=== PATIENT | female | born 1980 | race Hispanic/Latino ===

== ENCOUNTER 2017-03-26 15:56 | Emergency (ER) | payer SELFPAY ==
[2017-03-26 16:07] VITALS: BP 148/84; PULSE 111; RESP 16; TEMP 98.2; O2SAT 100
--- NOTE | 2017-03-26 16:35 | ED PDOC ---
HPI: Abdomen Time Seen by Provider: 03/26/17 16:20 Chief Complaint (Nursing): Abdominal Pain Chief Complaint (Provider): Epigastric abdominal pain History Per: Patient History/Exam Limitations: no limitations Onset/Duration Of Symptoms: Days (x4) Current Symptoms Are (Timing): Still Present Additional Complaint(s): Sarah Pitt is a 37 year old female with a past surgical history of lumpectomy s/p Breast CA dx earlier this year presenting to the ED for an evaluation of stabbing, non-radiating epigastric pain worsening when eating occurring for a few days prior to arrival. The patient also reports associated nausea occurring for 3 days prior to arrival and vomiting (resolved upon evaluation) occurring for 3-4 days prior to arrival and diarrhea occurring this morning prior to arrival. The patient reports her nausea started after taking OTC medication for a previous cold. She also reports visiting urgent care where she was given medication for her nausea causing heart burn. The patient also reports a minor fever, measured as 37 degrees Celsius. The patient denies blood in vomit or stool or dysuria. PMD: [facility] [phone] Past Medical History Reviewed: Historical Data, Nursing Documentation, Vital Signs Vital Signs: Last Vital Signs Temp 98.2 F 03/26/17 16:02 Pulse 111 H 03/26/17 16:02 Resp 16 03/26/17 16:02 BP 148/84 03/26/17 16:02 Pulse Ox 100 03/26/17 19:14 - Medical History PMH: No Chronic Diseases - Surgical History Other surgeries: lumpectomy - Family History Family History: States: No Known Family Hx - Social History Current smoker - smoking cessation education provided: No Ex-Smoker (has not smoked in the last 12 months): Yes Alcohol: Social Drugs: Denies - Home Medications Home Medications: Ambulatory Orders Medication Instructions Recorded Metronidazole [Flagyl] 500 mg PO Q8 #30 tab 03/26/17 Ondansetron ODT [Zofran ODT] 4 mg PO Q8 #12 odt 03/26/17 levoFLOXacin [Levaquin] 1 tab PO DAILY #10 tab 03/26/17 - Allergies Allergies/Adverse Reactions: Allergies Allergy/AdvReac Type Severity Reaction Status Date / Time No Known Allergies Allergy Verified 03/26/17 16:02 Review of Systems ROS Statement: Except As Marked, All Systems Reviewed And Found Negative Constitutional: Positive for: Fever Cardiovascular: Positive for: Other (heart burn from medication) Gastrointestinal: Positive for: Nausea, Vomiting, Abdominal Pain (epigastric), Diarrhea. Negative for: Hematochezia, Hematemesis Physical Exam - Reviewed Nursing Documentation Reviewed: Yes Vital Signs Reviewed: Yes - Physical Exam Appears: Positive for: Non-toxic, No Acute Distress Head Exam: Positive for: ATRAUMATIC, NORMOCEPHALIC Skin: Positive for: Normal Color, Warm, Dry Eye Exam: Positive for: Normal appearance, EOMI ENT: Positive for: Normal ENT Inspection Neck: Positive for: Normal, Painless ROM Cardiovascular/Chest: Positive for: Regular Rate, Rhythm. Negative for: Edema, Murmur Respiratory: Positive for: Normal Breath Sounds. Negative for: Respiratory Distress Pulses-Radial (L): 2+ Pulses-Radial (R): 2+ Gastrointestinal/Abdominal: Positive for: Soft, Tenderness (to LUQ), Guarding Back: Positive for: Normal Inspection. Negative for: L CVA Tenderness, R CVA Tenderness Extremity: Positive for: Normal ROM. Negative for: Deformity Neurologic/Psych: Positive for: Alert, Oriented (x3). Negative for: Motor/ Sensory Deficits - Laboratory Results Result Diagrams: 03/26/17 16:30 03/26/17 16:30 - ECG O2 Sat by Pulse Oximetry: 100 (RA) Pulse Ox Interpretation: Normal Medical Decision Making Medical Decision Making: Time: 16:20 Impression: LUQ abdominal pain Plan: * CMP * CBC (with differential) * Lipase * HCG, Qualitative Urine * Urinalysis * NS 0.9% 1,000 ml IV 1,000 mls/hr * Zofran 8 mg IVP * CT Abd & Pelvis IV Contrast Only * Reevaluation Time: 1858 --Abd & Pelvis CT FINDINGS: Lower thorax: No acute findings. ABDOMEN: Liver: Unremarkable. No mass. Gallbladder and bile ducts: Unremarkable. No calcified stones. No ductal dilation. Pancreas: Unremarkable. No mass. No ductal dilation. Spleen: Unremarkable. No splenomegaly. Adrenals: There is a focal hypodense mass in the left adrenal gland, consistent in appearance and density with a benign adrenal adenoma. Kidneys and ureters: Unremarkable. No solid mass. No hydronephrosis. Stomach and bowel: Apparent wall thickening in the colon may be secondary to incomplete filling versus mild colitis. Please clinically correlate. Appendix: A normal appendix is identified. No findings to suggest acute appendicitis. PELVIS: Bladder: Unremarkable. No mass. Reproductive: Unremarkable as visualized. ABDOMEN and PELVIS: Intraperitoneal space: Unremarkable. No free air. No significant fluid collection. Bones/joints: No acute fracture. No dislocation. Soft tissues: Unremarkable. Vasculature: Unremarkable. No abdominal aortic aneurysm. Lymph nodes: Unremarkable. No enlarged lymph nodes. IMPRESSION: Apparent wall thickening in the colon may be secondary to incomplete filling versus mild colitis. Please clinically correlate. Patient in no acute distress. Labs unremarkable. Will discharge on antibiotics, f/u PMD/GI, return to ED for worsening pain, fever, vomiting, dyspnea. Scribe Attestation: Documented by Myrna Ho, acting as a scribe for Bobby Carbajal MD. Provider Scribe Attestation: All medical record entries made by the Scribe were at my direction and personally dictated by me. I have reviewed the chart and agree that the record accurately reflects my personal performance of the history, physical exam, medical decision making, and the department course for this patient. I have also personally directed, reviewed, and agree with the discharge instructions and disposition. Disposition - Clinical Impression Clinical Impression: Colitis - Patient ED Disposition Is Patient to be Admitted: No - Disposition Disposition: Routine/Home Disposition Time: 19:15 Condition: STABLE Prescriptions: levoFLOXacin [Levaquin] 1 tab PO DAILY #10 tab Metronidazole [Flagyl] 500 mg PO Q8 #30 tab Ondansetron ODT [Zofran ODT] 4 mg PO Q8 #12 odt Instructions: Colitis (ED) Forms: [employer] (Divehi)
[2017-03-26] MEDS ORDERED: Iohexol 300 100 ML IJ ONE (16:49)
[2017-03-26] MEDS ORDERED: Sodium Chloride 0.9% 50 ML IV ONE (16:50)
[2017-03-26] MEDS: Sodium Chloride 0.9% 1,000 ML IV SCH ×3 (16:51→18:43)
[2017-03-26 16:54] LABS: RBC URINE 1 /hpf (0-3); URINE BILIRUBIN NEGATIVE (NEGATIVE); URINE BLOOD NEGATIVE (NEGATIVE); URINE COLOR YELLOW (YELLOW); URINE GLUCOSE (UA) NEG (Normal); URINE KETONE TRACE mg/dL (NEGATIVE); URINE LEUKOCYTE ESTERASE NEG Leu/uL (Negative); URINE PROTEIN 30 mg/dL (NEGATIVE); URINE UROBILINOGEN 0.2-1.0 mg/dL (0.2-1.0); WBC URINE 1 /hpf (0-5)
[2017-03-26 17:06] LABS: BASO % 0.2 % (0.0-2.0); HEMATOCRIT 38.3 % (34.0-47.0); LYMPH # 0.8 K/uL (1.0-4.3); LYMPH % 12.3 % (20.0-40.0); MEAN CELL VOLUME 93.5 fl (81.0-99.0); MEAN CORPUSCULAR HGB CONC 33.1 g/dL (33.0-37.0); MEAN PLATELET VOLUME 7.4 fl (7.2-11.7); MONO # 0.3 K/uL (0.0-0.8); MONO % 4.2 % (0.0-10.0); NEUT # 5.7 K/uL (1.8-7.0); NEUT % 83.3 % (50.0-75.0); NRBC % 0.1 % (0.0-0.0); RED CELL DISTRIBUTION WIDTH 12.6 % (11.5-14.5); WHITE BLOOD COUNT 6.8 K/uL (4.8-10.8)
[2017-03-26 17:11] LABS: ALKALINE PHOSPHATASE 67 U/L (38-126); ALT/SGPT 46 U/L (9-52); AST/SGOT 30 U/L (14-36); BILIRUBIN,TOTAL 0.6 mg/dl (0.2-1.3); BLOOD UREA NITROGEN 13 mg/dl (7-17); CALCIUM 9.6 mg/dL (8.4-10.2); CARBON DIOXIDE 25 mmol/L (22-30); CHLORIDE 101 mmol/L (98-107); GFR AFRICAN-AMERICAN > 60; GLUCOSE,RANDOM 120 mg/dL (65-105); LIPASE 48 U/L (23-300); POTASSIUM 4.8 MMOL/L (3.6-5.0); SODIUM 139 mmol/l (132-148); TOTAL PROTEIN 8.6 G/DL (6.3-8.2)
[2017-03-26 17:12] LABS: ALB/GLOB RATIO 1.3 (1.0-2.1)
--- NOTE | 2017-03-27 08:11 | CT ---
PROCEDURE: CT Abdomen and Pelvis with contrast HISTORY: abdominal pain COMPARISON: None. TECHNIQUE: Contrast dose: Radiation dose: Total exam DLP = mGy-cm. This CT exam was performed using one or more of the following dose reduction techniques: Automated exposure control, adjustment of the mA and/or kV according to patient size, and/or use of iterative reconstruction technique. FINDINGS: LOWER THORAX: Unremarkable. LIVER: Unremarkable. No gross lesion or ductal dilatation. GALLBLADDER AND BILE DUCTS: Unremarkable. PANCREAS: Unremarkable. No gross lesion or ductal dilatation. SPLEEN: Unremarkable. ADRENALS: Unremarkable. No mass. KIDNEYS AND URETERS: Unremarkable. No hydronephrosis. No solid mass. VASCULATURE: Unremarkable. No aortic aneurysm. BOWEL: Thickening of the wall of the descending colon consistent with mild colitis. No associated loculated air, free air, drainable collection APPENDIX: Normal appendix. PERITONEUM: Unremarkable. No free fluid. No free air. LYMPH NODES: Unremarkable. No enlarged lymph nodes. BLADDER: Unremarkable. REPRODUCTIVE: Unremarkable. BONES: No acute fracture. OTHER FINDINGS: None. IMPRESSION: Segmental colitis confined to the descending colon. Concordant results (preliminary interpretation) provided by [facility]. Procedure Completed: 18:15 Preliminary ([facility]) Report: Dictated and Authenticated: 18:59 Final Interpretation: 08:09 03/27/2017
== END 2017-03-26 20:00 | disposition home or self-care (01) ==
LOC: H.ER 15:56
DX: K52.9 Noninfective gastroenteritis and colitis, unspecified (principal); Z87.891 Personal history of nicotine dependence
CPT/HCPCS: 74177; 80053; 81003; 81025; 83690; 84703; 85025; 96361; 96374; 99283; J2405; J7040; Q9967

== ENCOUNTER 2018-06-15 22:41 | Emergency (ER) | payer SELFPAY ==
[2018-06-16 00:26] VITALS: O2SAT 100
--- NOTE | 2018-06-16 01:01 | ED PDOC ---
HPI: Abdomen Time Seen by Provider: 06/16/18 00:49 Chief Complaint (Nursing): Abdominal Pain Chief Complaint (Provider): abdominal pain History Per: Patient History/Exam Limitations: no limitations Onset/Duration Of Symptoms: Days (2) Location Of Pain/Discomfort: RUQ, Epigastric Associated Symptoms: Nausea Additional Complaint(s): 38 y/o female history of breast CA (status-post lumpectomy and node resection 2 years ago) presents for evaluation of right upper abdominal pain x 2 days. Patient reports having similar-type pain on-and-off x 2 weeks, but states became more intense as of yesterday. Associated nausea. Denies fever, vomiting, chest pain, shortness of breath, palpitations, changes in bowel movements, urinary symptoms, recent travel. Past Medical History Reviewed: Historical Data, Nursing Documentation, Vital Signs Vital Signs: Last Vital Signs Temp 98.0 F 06/16/18 00:23 Pulse 82 06/16/18 00:23 Resp 18 06/16/18 00:23 BP 148/89 06/16/18 00:23 Pulse Ox 100 06/16/18 00:23 - Medical History PMH: Malignancy (breast CA) - Family History Family History: States: No Known Family Hx - Home Medications Home Medications: Ambulatory Orders Medication Instructions Recorded Metronidazole [Flagyl] 500 mg PO Q8 #30 tab 03/26/17 Ondansetron ODT [Zofran ODT] 4 mg PO Q8 #12 odt 03/26/17 levoFLOXacin [Levaquin] 1 tab PO DAILY #10 tab 03/26/17 - Allergies Allergies/Adverse Reactions: Allergies Allergy/AdvReac Type Severity Reaction Status Date / Time No Known Allergies Allergy Verified 06/16/18 00:23 Review of Systems ROS Statement: Except As Marked, All Systems Reviewed And Found Negative Gastrointestinal: Positive for: Nausea, Abdominal Pain Physical Exam - Reviewed Nursing Documentation Reviewed: Yes Vital Signs Reviewed: Yes - Physical Exam Appears: Positive for: Well, Non-toxic, No Acute Distress Head Exam: Positive for: ATRAUMATIC, NORMAL INSPECTION, NORMOCEPHALIC Skin: Positive for: Normal Color Eye Exam: Positive for: Normal appearance ENT: Positive for: Normal ENT Inspection Neck: Positive for: Normal, Painless ROM Cardiovascular/Chest: Positive for: Regular Rate, Rhythm Respiratory: Positive for: Normal Breath Sounds Gastrointestinal/Abdominal: Positive for: Bowel Sounds, Soft, Tenderness (epigastric) Back: Positive for: Normal Inspection Extremity: Positive for: Normal ROM Neurological/Psych: Positive for: Awake, Alert, Oriented - Laboratory Results Result Diagrams: 06/16/18 01:35 06/16/18 01:35 - ECG O2 Sat by Pulse Oximetry: 100 - Progress ED Course And Treament: -cbc -cmp -lipase -RUQ ultrasound -IV toradol -IV zofran Right upper quadrant ultrasound. Indication: Right upper quadrant pain. Technique: Real-time ultrasound images. Findings: Limited views secondary to gaseous bowel distention. Unremarkable liver measuring 15.7 cm. Unremarkable gallbladder. The common bile duct measuring 4.2 mm. Unremarkable pancreas. Unremarkable IVC, aorta and right kidney. Impression: Unremarkable exam. Patient states she is feeling better on re-eval Patient educated on findings, discharged with instructions to follow up with PMD within 2-3 days Return precautions given Disposition - Clinical Impression Clinical Impression: Abdominal pain - Patient ED Disposition Is Patient to be Admitted: No Counseled Patient/Family Regarding: Studies Performed, Diagnosis, Need For Followup - Disposition Disposition: Routine/Home Disposition Time: 05:27 Condition: IMPROVED Instructions: Acute Abdomen (Belly Pain) Forms: [employer] (Maltese)
[2018-06-16 01:53] LABS: BASO % 0.3 % (0.0-2.0); EOS # 0.1 K/uL (0.0-0.7); EOS % 1.3 % (0.0-4.0); HEMOGLOBIN 13.4 g/dL (12.0-16.0); LYMPH # 1.8 K/uL (1.0-4.3); LYMPH % 28.5 % (20.0-40.0); MEAN CELL VOLUME 93.7 fl (81.0-99.0); MEAN CORPUSCULAR HEMOGLOBIN 31.4 pg (27.0-31.0); MEAN CORPUSCULAR HGB CONC 33.5 g/dL (33.0-37.0); MEAN PLATELET VOLUME 7.5 fl (7.2-11.7); MONO # 0.5 K/uL (0.0-0.8); MONO % 7.8 % (0.0-10.0); NEUT # 3.9 K/uL (1.8-7.0); NEUT % 62.1 % (50.0-75.0); NRBC % 0.1 % (0.0-0.0); RBC 4.27 Mil/uL (3.80-5.20); RED CELL DISTRIBUTION WIDTH 13.2 % (11.5-14.5); WHITE BLOOD COUNT 6.3 K/uL (4.8-10.8)
[2018-06-16 02:01] LABS: BLOOD UREA NITROGEN 12 mg/dl (7-17); CALCIUM 9.8 mg/dL (8.4-10.2); GFR NON-AFRICAN AMERICAN > 60; LIPASE 62 U/L (23-300)
[2018-06-16 02:11] LABS: ALB/GLOB RATIO 1.3 (1.0-2.1); ALBUMIN 4.9 g/dL (3.5-5.0); ALT/SGPT 32 U/L (9-52); AST/SGOT 39 U/L (14-36)
[2018-06-16] MEDS ORDERED: DiphenhydrAMINE 50 mg/ml Inj IV ONE (03:12)
[2018-06-16] MEDS ORDERED: Simethicone 80 mg Chewtab PO STA (05:24)
[2018-06-16 05:29] VITALS: BP 127/73; PULSE 71; RESP 15; TEMP 98.5
--- NOTE | 2018-06-16 11:28 | US ---
Date of service: 06/16/2018 HISTORY: ruq pain COMPARISON: None. TECHNIQUE: Sonographic evaluation of the right upper quadrant of the abdomen. FINDINGS: LIVER: Measures 15.7 cm in length. Patent portal vein. Portal venous flow: Hepatopetal. Unremarkable echogenicity of the liver parenchyma. No mass. No intrahepatic bile duct dilatation. GALLBLADDER: Unremarkable. No gallstones. COMMON BILE DUCT: Measures 4.2 mm. No stones. No dilatation. PANCREAS: Unremarkable as visualized. No mass. No ductal dilatation. RIGHT KIDNEY: Measures 5 x 9.3 cm in length. Normal echogenicity. No calculus, mass, or hydronephrosis. AORTA: No aneurysmal dilatation. IVC: Unremarkable. OTHER FINDINGS: None . IMPRESSION: No significant or acute findings to account for/ related to the clinical presentation. Concordant findings (preliminary report) provided by [facility].
== END 2018-06-16 05:42 | disposition home or self-care (01) ==
LOC: H.ER 22:41
DX: R10.9 Unspecified abdominal pain (principal)
CPT/HCPCS: 76705; 80053; 81025; 83690; 85025; 99284; J1885; J2270; J2405